=== PATIENT | male | born 1950 | race Caucasian/White ===

== ENCOUNTER 2024-09-15 09:44 | Emergency (ER) | payer MEDICARE ==
[~2024-09-15] VITALS: Ht 177.8 cm; Wt 89.0 kg
[2024-09-15] MEDS ORDERED: prednisone 10mg tablet PO ONE (10:40)
[2024-09-15] MEDS ORDERED: VALP250C44 PO (10:48)
[2024-09-15] MEDS ORDERED: PRED10TA23 PO (10:48)
[2024-09-15 10:53] LABS: ALBUMIN 4.4 G/DL (3.4-5.0); ANION GAP 12 (8-16); BLOOD UREA NITROGEN 27 MG/DL (7-18); BUN/CREATININE RATIO 30.7 (10.0-20.0); CALCIUM 9.5 MG/DL (8.5-10.1); CHLORIDE 102 MMOL/L (99-107); CREATININE 0.88 MG/DL (0.60-1.10); GLUCOSE 282 MG/DL (70-104); POTASSIUM 4.3 MMOL/L (3.5-5.1); SODIUM 140 MMOL/L (135-145); TOTAL CARBON DIOXIDE 25.9 MMOL/L (24-32); eCRCL 76 ML/MIN; eGFR 85 ML/MIN
[2024-09-15 10:56] LABS: APTT 30 SECONDS (22-32); PROTHROMBIN TIME 10.5 SECONDS (9.0-12.0)
[2024-09-15] MEDS: valacyclovir 500mg tablet PO STA (11:10)
[2024-09-15] MEDS: predniSONE 20 mg tablet PO ONE (11:10)
[2024-09-15 11:12] VITALS: BP 165/80; PULSE 87; RESP 16; TEMP 97.9; O2SAT 92
[2024-09-15] MEDS ORDERED: VALA100031 PO (18:30)
[2024-09-15] MEDS ORDERED: valacyclovir 500mg tablet PO SCH (20:00)
== END 2024-09-15 11:14 | disposition home or self-care (01) ==
LOC: ER 09:45
DX: G51.0 Bell's palsy (principal); Z79.52 Long term (current) use of systemic steroids; Z79.899 Other long term (current) drug therapy
CPT/HCPCS: 36415; 70450; 71045; 80048; 82948; 85610; 85730; 93005; 99285; A4615; J7512